=== PATIENT | male | born 1945 | race Asian ===

== ENCOUNTER 2017-03-11 13:46 | Emergency (ER) | payer OTHER ==
[~2017-03-11] VITALS: Ht 172.7 cm; Wt 75.0 kg
[~2017-03-11 13:46] MED LIST: ATOR20TA86 PO; FINA5TAB2 PO
[2017-03-11] MEDS ORDERED: SIMV-259 PO (13:54)
[2017-03-11 15:19] VITALS: BP 135/78
== END 2017-03-11 15:49 | disposition home or self-care (01) ==
LOC: EMS 13:48
DX: S83.92XA Sprain of unspecified site of left knee, initial encounter (principal); E78.00 Pure hypercholesterolemia, unspecified; W01.0XXA Fall on same level from slipping, tripping and stumbling without subsequent striking against object, initial encounter; Y93.89 Activity, other specified; Y92.89 Other specified places as the place of occurrence of the external cause; Y99.8 Other external cause status
CPT/HCPCS: 99284

== ENCOUNTER 2018-03-14 18:57 | Emergency (ER) | payer OTHER ==
[~2018-03-14] VITALS: Ht 172.7 cm; Wt 70.5 kg
[~2018-03-14 18:57] MED LIST changes: -ATOR20TA86 PO; +SIMV-259 PO
[2018-03-14] MEDS ORDERED: TAMS0.4C32 PO (19:00)
[2018-03-14 19:46] LABS: APPEARANCE,URINE CLEAR (CLEAR); BILIRUBIN,URINE NEGATIVE (NEGATIVE); GLUCOSE, URINE (UA) NEGATIVE (NEGATIVE); KETONES,URINE NEGATIVE (NEGATIVE); LEUKOCYTE ESTERASE ,URINE NEGATIVE (NEGATIVE); NITRATE,URINE NEGATIVE (NEGATIVE); OCCULT BLOOD,URINE NEGATIVE (NEGATIVE); PH,URINE 6.5 (5.0-8.0); PROTEIN,URINE NEGATIVE (NEGATIVE); UROBILINOGEN,URINE 0.2 mg/dL (<=1.0)
[2018-03-14] MEDS ORDERED: IBUPROFEN 600 MG TABLET PO ONE (21:00)
[2018-03-14 22:19] VITALS: BP 134/80
== END 2018-03-14 22:23 | disposition home or self-care (01) ==
LOC: EMS 18:58
DX: M25.852 Other specified joint disorders, left hip (principal); K42.9 Umbilical hernia without obstruction or gangrene; E78.00 Pure hypercholesterolemia, unspecified; N42.9 Disorder of prostate, unspecified; Z79.899 Other long term (current) drug therapy; Z98.890 Other specified postprocedural states
CPT/HCPCS: 73503; 99285

== ENCOUNTER 2020-05-31 15:32 | Emergency (ER) | payer OTHER ==
[~2020-05-31] VITALS: Ht 170.2 cm; Wt 93.0 kg
[~2020-05-31 15:32] MED LIST changes: +TAMS-13 PO
[2020-05-31] MEDS ORDERED: ALBU8HFA IH (15:39)
[2020-05-31] MEDS ORDERED: ATOR20TA86 PO (15:39)
[2020-05-31] MEDS ORDERED: GUAIF600 PO (15:39)
[2020-05-31 17:23] LABS: BASOPHILS % (AUTO) 1.3 % (0.0-2.0); EOSINOPHILS % (AUTO) 12.1 % (1.0-6.0); HEMATOCRIT 50.5 % (41-53); HEMOGLOBIN 16.7 g/dL (13.5-17.5); LYMPHOCYTES # (AUTO) 1.7 K/uL (1.0-4.8); LYMPHOCYTES % (AUTO) 14.5 % (22.0-44.0); MEAN CORPUSCULAR HEMOGLOBIN 32.4 pg (26.0-34.0); MEAN CORPUSCULAR VOLUME 98 fL (80-100); MONOCYTES # (AUTO) 0.9 K/uL (0.1-1.0); MONOCYTES % (AUTO) 7.4 % (2.0-9.0); NEUTROPHILS # (AUTO) 7.5 K/uL (1.8-7.7); NEUTROPHILS % (AUTO) 64.7 % (40.0-70.0); PLATELET COUNT (AUTO) 631 K/uL (150-450); RED BLOOD CELL COUNT(AUTO) 5.15 MIL/uL (4.50-5.90); RED CELL DISTRIBUTION WIDTH 14.9 % (11.5-14.5)
[2020-05-31 17:27] LABS: ANION GAP 6 mmol/L (8-16); CALCIUM, TOTAL 9.1 mg/dL (8.8-10.5); CARBON DIOXIDE 30 mmol/L (22-29); CHLORIDE 102 mmol/L (98-107); CREATININE 1.09 mg/dL (0.60-1.30); GLOMERULAR FILTR. RATE CALC > 60 mL/min (>60); GLUCOSE,RANDOM 104 mg/dL (70-110); POTASSIUM 3.7 mmol/L (3.5-5.1); SODIUM SERUM 138 mmol/L (136-145); UREA NITROGEN, BLOOD 12 mg/dL (7-18)
[2020-05-31 17:33] LABS: ALANINE AMINOTRANSFERASE 40 U/L (12-78); ALBUMIN 4.2 g/dL (3.4-5.0); ALKALINE PHOSPHATASE 84 U/L (46-116); ASPARTATE AMINOTRANSFERASE 24 U/L (15-37); BILIRUBIN,TOTAL 0.6 mg/dL (0.1-1.0)
[2020-05-31 17:56] LABS: B-TYPE NATRIURETIC PEPTIDE 7 pg/mL (0-100)
[2020-05-31] MEDS ORDERED: ALBUTEROL SULFATE HFA 90 MCG/PUFF 8 GM INHALER IH ONE (18:30)
[2020-05-31 18:33] VITALS: BP 130/75
== END 2020-05-31 18:42 | disposition home or self-care (01) ==
LOC: EMS 15:32
DX: J40 Bronchitis, not specified as acute or chronic (principal); E78.00 Pure hypercholesterolemia, unspecified; Z79.899 Other long term (current) drug therapy
CPT/HCPCS: 93005; J3535; 36415-L1; 36415-TC; 71045-TC

== ENCOUNTER 2021-02-05 15:22 | Emergency (ER) | payer OTHER ==
[~2021-02-05] VITALS: Ht 172.7 cm; Wt 77.3 kg
[~2021-02-05 15:22] MED LIST changes: +ALBU8HFA IH; +ATOR20TA86 PO; +GUAIF600 PO; -SIMV-259 PO; -TAMS-13 PO
[2021-02-05] MEDS ORDERED: NAPROXEN 250 MG TABLET PO ONE (16:45)
[2021-02-05 18:41] VITALS: BP 132/59
== END 2021-02-05 19:00 | disposition home or self-care (01) ==
LOC: EMS 15:34
DX: S82.141A Displaced bicondylar fracture of right tibia, initial encounter for closed fracture (principal); J45.909 Unspecified asthma, uncomplicated; E78.00 Pure hypercholesterolemia, unspecified; X50.1XXA Overexertion from prolonged static or awkward postures, initial encounter; Y93.89 Activity, other specified; Y92.89 Other specified places as the place of occurrence of the external cause; Y99.8 Other external cause status
CPT/HCPCS: 29505; 99283